=== PATIENT | male | born 1945 | race Caucasian/White ===

== ENCOUNTER 2018-09-08 10:05 | Emergency (ER) | payer MEDICARE, MEDICAID ==
[~2018-09-08] VITALS: Ht 177.8 cm; Wt 75.0 kg
[2018-09-08] MEDS ORDERED: ondansetron/PF 4mg/2ml inj IV ONE (10:40)
[2018-09-08 11:01] LABS: BASOPHILS % (AUTO) 1.2 % (0-1); EOSINOPHILS % (AUTO) 0.5 % (0-6); HEMATOCRIT 34.8 % (42.0-52.0); HEMOGLOBIN 12.1 g/dl (14.0-17.9); LYMPHOCYTES # (AUTO) 0.6 X10'3 (1.1-4.8); MEAN CORPUSCULAR HGB CONC 34.8 g/dL (33.0-36.5); MEAN CORPUSCULAR VOLUME 100.7 FL (78-98); MEAN PLATELET VOLUME 9.6 FL (7.4-10.4); MONOCYTES # (AUTO) 0.3 X10'3 (0-0.9); MONOCYTES % (AUTO) 14.4 % (2-12); NEUTROPHILS # (AUTO) 1.4 X10'3 (1.8-7.7); NEUTROPHILS % (AUTO) 58.9 % (42-75); PLATELET COUNT 110 X10'3 (140-440); RED BLOOD COUNT 3.46 X10'6 (4.70-6.10); RED CELL DISTRIBUTION WIDTH 16.3 % (11.5-14.5); WHITE BLOOD COUNT 2.3 X10'3 (4.5-11.0)
[2018-09-08 11:09] LABS: ALANINE AMINOTRANSFERASE 21 U/L (12-78); ALBUMIN 2.9 G/DL (3.4-5.0); ALBUMIN/GLOBULIN RATIO 0.5 (1.1-1.5); ALKALINE PHOSPHATASE 58 IU/L (46-116); ANION GAP 10 (8-16); ASPARTATE AMINO TRANSFERASE 18 U/L (10-37); BLOOD UREA NITROGEN 8 MG/DL (7-18); BUN/CREATININE RATIO 8.2 (5.4-32.0); CHLORIDE 95 MMOL/L (99-107); CREATININE 0.98 MG/DL (0.60-1.10); GLUCOSE 122 MG/DL (70-104); POTASSIUM 3.2 MMOL/L (3.5-5.1); SODIUM 134 MMOL/L (135-145); TOTAL CARBON DIOXIDE 28.6 MMOL/L (24-32); TOTAL PROTEIN 9.2 G/DL (6.4-8.2); eGFR 75 ML/MIN
[2018-09-08 11:14] LABS: LIPASE 67 U/L (73-393); TROPONIN I < 0.04 NG/ML (0.0-0.05)
[2018-09-08] MEDS: morphine 4 MG/ML inj SYRINge IV PRN ×2 (11:23→12:09)
[2018-09-08 11:58] LABS: CLARITY,URINE SLIGHTLY CLOUDY (Clear); COLOR,URINE YELLOW (Yellow); GLUCOSE, URINE NEGATIVE (Neg); KETONES,URINE TRACE mg/dl (Neg); LEUKOCYTE ESTERASE ,URINE NEGATIVE (Neg); NITRITES, URINE NEGATIVE (Neg); OCCULT BLOOD,URINE SMALL (Neg); PROTEIN,URINE 30 mg/dl (Neg)
[2018-09-08 12:08] LABS: TOTAL CELLS COUNTED 100
[2018-09-08 12:09] LABS: ANISOCYTOSIS 1+; PLATELET ESTIMATE DECREASED
[2018-09-08 12:10] LABS: GIANT PLATELET FEW
[2018-09-08 12:19] LABS: UA COLLECTION TYPE VOIDED
[2018-09-08 12:20] LABS: WBC,URINE 0-4 /HPF (0-4)
[2018-09-08 12:21] LABS: BACTERIA,URINE NONE SEEN /HPF (Neg); HYALINE CASTS 0-3 /LPF (NEGATIVE); MUCUS STRANDS MANY /LPF (Neg); RBC,URINE 0-2 /HPF (0-2); SQUAMOUS EPITHELIAL CELL,UR FEW /LPF (FEW)
--- NOTE | 2018-09-08 12:38 | NUR ---
PATIENT ACCOMPANIED TO CT AT THIS TIME PER REQUEST SINCE PATIENT WAS UNABLE TO TOLERATE PROCEDURE THE FIRST ATTEMPT. PATIENT ABLE TO COMPLETE CT SCAN, SAFELY RETURNED TO ROOM, ALL SAFETY MEASURES IN PLACE, DAUGHTER AT BEDSIDE.
[2018-09-08] MEDS ORDERED: morphine 4 MG/ML inj SYRINge IV ONE (13:45)
[2018-09-08] MEDS ORDERED: HYDR-4353 PO (14:04)
[2018-09-08] MEDS ORDERED: POLY119P2 PO (14:04)
[2018-09-08] MEDS ORDERED: dexamethasone 4mg tablet PO ONE (14:05)
[2018-09-08 14:25] VITALS: BP 156/58
== END 2018-09-08 14:29 | disposition home or self-care (01) ==
LOC: ER 10:05
DX: M54.5 Low back pain (principal); C90.00 Multiple myeloma not having achieved remission; Z88.8 Allergy status to other drugs, medicaments and biological substances; Z79.899 Other long term (current) drug therapy
CPT/HCPCS: 36415; 72100; 74176; 80053; 81001; 83690; 84484; 85025; 93005; 96374; 96375; 96376; 99284; J2270; J2405; J8540